=== PATIENT | male | born 1975 | race Caucasian/White ===

== ENCOUNTER 2016-06-27 11:35 | Emergency (ER) | payer BC, OTHER ==
[~2016-06-27] VITALS: Wt 91.0 kg
[2016-06-27] MEDS ORDERED: ONDANSETRON 4 MG INJ IV STA (12:50)
[2016-06-27] MEDS ORDERED: KETOROLAC 30 MG INJ IV STA (12:50)
[2016-06-27] MEDS ORDERED: SOD CHLORIDE 0.9% 1,000 ML IV STA (12:50)
[2016-06-27 13:40] LABS: ALBUMIN 4.4 g/dl (3.3-4.9)
[2016-06-27 13:41] LABS: POTASSIUM 4.3 mmol/L (3.5-5.1)
[2016-06-27 13:42] LABS: ADD UMIC NO; URINE BILIRUBIN (Dip) NEGATIVE (NEGATIVE); URINE BLOOD (Dip) NEGATIVE (NEGATIVE); URINE COLOR LT. YELLOW (YELLOW); URINE GLUCOSE (Dip) NEGATIVE (NEGATIVE); URINE KETONES (Dip) NEGATIVE (NEGATIVE); URINE LEUKOCYTE ESTERASE (Dip) NEGATIVE (NEGATIVE); URINE NITRITE (Dip) NEGATIVE (NEGATIVE); URINE TOTAL PROTEIN (Dip) NEGATIVE (NEGATIVE); URINE UROBILINOGEN (Dip) 0.2 E.U./dL (0.1-1.0)
[2016-06-27 13:43] LABS: ALBUMIN/GLOBULIN RATIO 1.37; BASOPHILS % 0.3 % (0.0-2.0); BILIRUBIN,INDIRECT 0.5 mg/dl (0-1.1); BILIRUBIN,TOTAL 0.5 mg/dl (0.2-1.3); CREATININE 0.89 mg/dl (0.61-1.24); EOSINOPHILS # 0.2 10^3/ul (0.0-0.5); EOSINOPHILS % 1.9 % (0.0-7.0); HEMATOCRIT 49.5 % (42.0-52.0); HEMOGLOBIN 16.7 g/dl (14.0-18.0); LYMPHOCYTES # 1.5 10^3/ul (0.8-2.9); LYMPHOCYTES % 13.4 % (15.0-51.0); MEAN CORPUSCULAR HEMOGLOBIN 30.3 pg (29.0-33.0); MEAN CORPUSCULAR HGB CONC 33.7 g/dl (32.0-37.0); MEAN CORPUSCULAR VOLUME 89.9 fl (82.0-101.0); MEAN PLATELET VOLUME 8.8 fl (7.4-10.4); MONOCYTES % 8.8 % (0.0-11.0); NEUTROPHIL # 8.3 10^3/ul (1.6-7.5); NEUTROPHILS % 75.6 % (39.0-77.0); PLATELET COUNT 171 10^3/UL (140-440); RED CELL DISTRIBUTION WIDTH 15.4 % (11.5-14.5); TOTAL PROTEIN 7.6 g/dl (6.1-8.1)
[2016-06-27 13:44] LABS: CALCIUM 9.5 mg/dl (8.4-10.2)
[2016-06-27 13:47] LABS: CONDITION 1; LH ANALYZER COMMENTS 1
--- NOTE | 2016-06-27 13:56 | RADRPT ---
PROCEDURE: US Abdomen. CLINICAL INDICATION: abdominal pain TECHNIQUE: Multiple real-time images were acquired of the patient's right upper quadrant abdomen a nd retroperitoneum utilizing a high resolution transducer. COMPARISON: None FINDINGS: The liver demonstrates normal echogenicity. The liver is normal in size and no focal solid lesions are seen. The liver measures 16.7 cm in length. The portal vein is patent with normal direction of f low. No intrahepatic biliary dilatation is seen. No gallstones are identified within the gallbladder. There is no pericholecystic fluid or gallbladd er wall thickening. The common bile duct measures 5 mm in maximal dimension. The visualized portions of the pancreas are unremarkable. The tail of the pancreas is not seen. No free fluid is identified. The right kidney is normal in size, and demonstrate normal echogenicity and cortical thickness. The right kidney measures 12.1 cm in long dimension. There is no evidence of hydronephrosis. There are no kidney stones. RPTAT: AA IMPRESSION: Unremarkable right upper quadrant abdominal ultrasound. .Claudy Ann MD, Date Time Electronically viewed and signed by .Claudy Ann MD, on 06/27/2016 13:56 .S/
[2016-06-27] MEDS ORDERED: ONDA4TAB14 PO (14:39)
[2016-06-27] MEDS ORDERED: IBUP-1542 PO (14:39)
[2016-06-27 15:00] VITALS: BP 119/64; PULSE 76; RESP 19; TEMP 98.2
--- NOTE | 2016-06-27 15:16 | ERD ---
ER Documentation Chief Complaint Date/Time DATE: 06/27/16 TIME: 15:13 Chief Complaint RIGHT UUPER ABD PAIN FOR 4 DAYS WITH N/V. DIARRHEA. HPI Patient is a 40-year-old male with no medical problems who presents with abdominal pain. He has vomiting, diarrhea, and abdominal pain that has been worse over the past 3 days. He also had headache and watery eyes. He said the pain is 8 out of 10. He went to the [facility] this morning and saw a PA who sent him to the emergency department for a gallbladder workup. ROS All systems reviewed and are negative except as per history of present illness. Medications Home Meds Active Scripts Ondansetron (Ondansetron Odt) 4 Mg Tab.rapdis, 4 MG PO Q6H Y for NAUSEA AND/OR VOMITING, #30 TAB Prov:PAPO FIELD MD 06/27/16 Ibuprofen* (Motrin*) 600 Mg Tab, 600 MG PO Q6H Y for PAIN AND OR ELEVATED TEMP, #30 TAB Prov:PAPO FIELD MD 06/27/16 Allergies Allergies: Coded Allergies: Sulfa (Sulfonamide Antibiotics) (Verified Allergy, Unknown, 06/27/16) amoxicillin (Verified Allergy, Unknown, 06/27/16) PMhx/Soc Medical and Surgical Hx: pt denies Medical Hx, pt denies Surgical Hx History of Surgery: No Anesthesia Reaction: No Hx Neurological Disorder: No Hx Respiratory Disorders: No Hx Cardiac Disorders: No Hx Psychiatric Problems: No Hx Miscellaneous Medical Probl: No Hx Alcohol Use: No Hx Substance Use: No Hx Tobacco Use: No Smoking Status: Never smoker FmHx Brother and mother both had gallbladder removal Physical Exam Vitals Vital Signs Date Time Temp Pulse Resp B/P Pulse Ox O2 Delivery O2 Flow Rate FiO2 06/27/16 15:00 98.2 76 19 119/64 100 Room Air 06/27/16 11:36 98.8 87 20 134/81 99 Physical Exam Const: Mild distress secondary to pain Head: Atraumatic Eyes: Normal Conjunctiva ENT: Normal External Ears, Nose and Mouth. Neck: Full range of motion..~ No meningismus. Resp: Clear to auscultation bilaterally Cardio: Regular rate and rhythm, no murmurs Abd: Soft, right upper quadrant pain without rebound or guarding Skin: No petechiae or rashes Back: No midline or flank tenderness Ext: No cyanosis, or edema Neur: Awake and alert Psych: Normal Mood and Affect Result Diagram: 06/27/16 1320 06/27/16 1320 Results 24 hrs Laboratory Tests Test 06/27/16 13:20 Alanine Aminotransferase (ALT/SGPT) 41IU/L Albumin 4.4g/dl Albumin/Globulin Ratio 1.37 Alkaline Phosphatase 134IU/L Anion Gap 18 Aspartate Amino Transf (AST/SGOT) 33IU/L Basophils # 0.010^3/ul Basophils % 0.3% Blood Morphology Comment Blood Urea Nitrogen 11mg/dl Calcium Level 9.5mg/dl Carbon Dioxide Level 28mmol/L Chloride Level 101mmol/L Creatinine 0.89mg/dl Direct Bilirubin 0.00mg/dl Eosinophils # 0.210^3/ul Eosinophils % 1.9% Globulin 3.20g/dl Glucose Level 87mg/dl Hematocrit 49.5% Hemoglobin 16.7g/dl Indirect Bilirubin 0.5mg/dl Lipase 55U/L Lymphocytes # 1.510^3/ul Lymphocytes % 13.4% Mean Corpuscular Hemoglobin 30.3pg Mean Corpuscular Hemoglobin Concent 33.7g/dl Mean Corpuscular Volume 89.9fl Mean Platelet Volume 8.8fl Monocytes # 1.010^3/ul Monocytes % 8.8% Neutrophils # 8.310^3/ul Neutrophils % 75.6% Nucleated Red Blood Cells # 0.010^3/ul Nucleated Red Blood Cells % 0.0/100WBC Platelet Count 95904^3/UL Potassium Level 4.3mmol/L Red Blood Count 5.5010^6/ul Red Cell Distribution Width 15.4% Sodium Level 143mmol/L Total Bilirubin 0.5mg/dl Total Protein 7.6g/dl Urine Bilirubin NEGATIVE Urine Clarity CLEAR Urine Color LT. YELLOW Urine Glucose NEGATIVE% Urine Hemoglobin NEGATIVE Urine Ketones NEGATIVE Urine Leukocyte Esterase NEGATIVE Urine Nitrite NEGATIVE Urine Specific [place] 1.015 Urine Total Protein NEGATIVE Urine Urobilinogen 0.2 E.U./dL Urine pH 5.0 White Blood Count 11.010^3/ul Current Medications Medications (Trade) Dose Ordered Sig/Cathleen Route PRN Reason Start Time Stop Time Status Last Admin Dose Admin Sodium Chloride (NS) 1,000 ml @ 1,000 mls/hr Q1H STAT IV 06/27/16 12:50 06/27/16 13:49 DC 06/27/16 13:56 Ondansetron HCl (Zofran Inj) 4 mg ONCE STAT IV 06/27/16 12:50 06/27/16 12:51 DC 06/27/16 13:55 Ketorolac Tromethamine (Toradol) 30 mg ONCE STAT IV 06/27/16 12:50 06/27/16 12:52 DC 06/27/16 13:55 Procedures/MDM Ultrasound unremarkable per radiology. Patient is a 40-year-old male who presents with right upper quadrant abdominal pain. Laboratory studies are basically normal including normal LFTs and lipase. Ultrasound shows no signs of cholecystitis. At this point I doubt cholecystitis, pancreatitis, appendicitis, or bowel obstruction. I believe outpatient management is appropriate. The patient will need close follow-up with his primary doctor within 24-48 hours for reevaluation. He can return sooner for any worsening symptoms. I will also give him information for Dr. Rojas from general surgery for further workup in case he does need gallbladder removal. Laboratory studies and ultrasound report was provided to the patient prior to discharge. Departure Diagnosis: Primary Impression: Abdominal pain Abdominal location: right upper quadrant Qualified Code: R10.11 - Right upper quadrant abdominal pain Additional Impression: Vomiting Vomiting type: unspecified Vomiting Intractability: non-intractable Nausea presence: with nausea Qualified Code: R11.2 - Non-intractable vomiting with nausea, unspecified vomiting type Condition: Fair Patient Instructions: Abdominal Pain, Vomiting (6Y-Adult) Referrals: ROSA ROJAS M.D. Additional Instructions: Call your primary care doctor TOMORROW for an appointment during the next 1-2 days.See the doctor sooner or return here if your condition worsens before your appointment time. PAPO FIELD MD Jun 27, 2016 15:15
== END 2016-06-27 15:03 | disposition home or self-care (01) ==
LOC: FTE 11:35
DX: R10.11 Right upper quadrant pain (principal); R11.2 Nausea with vomiting, unspecified
CPT/HCPCS: 36415; 76705; 80053; 81003; 83690; 85025; 96374; 96375; 99285; J1885; J2405; J7030

== ENCOUNTER 2016-08-02 13:54 | Emergency (ER) | payer BC ==
[2016-06-27 15:00] VITALS: PULSE 76; RESP 19; TEMP 98.2
[~2016-08-02] VITALS: Ht 177.8 cm; Wt 78.9 kg
[~2016-08-02 13:54] MED LIST: IBUP-1542 PO; ONDA4TAB14 PO
[2016-08-02 14:02] VITALS: Ht 177.8 cm; Wt 78.9 kg
--- NOTE | 2016-08-02 15:41 | RADRPT ---
PROCEDURE: Targeted sonogram of the mid neck superior to the thyroid gland. CLINICAL INDICATION: Questionable soft tissue mass over the medial anterior neck. TECHNIQUE: Multiple sonographic images of the thyroid were obtained utilizing a linear array trans ducer with grayscale and color-flow and a Doppler imaging. The images were reviewed on a high-resolu tion PACS workstation. COMPARISON: No. FINDINGS: A 0.5 x 0.3 x 0.6 cm nodule is identified slightly off midline superior to the isthmus of the thyroi d gland. No internal calcification or increased peripheral or internal blood flow is identified. T herefore this is likely benign. Short-term screw follow-up imaging is recommended as clinically ind icated. IMPRESSION: 0.5 x 0.3 x 0.6 cm nonspecific soft tissue mass near midline resting superior to the isthmus of the thyroid gland. RPTAT:AAJJ Physician Greg Date Time Electronically viewed and signed by Physician Greg on 08/02/2016 15:41 TAMRA/
--- NOTE | 2016-08-02 18:35 | ERD ---
ER Documentation Chief Complaint Date/Time DATE: 08/02/16 TIME: 18:[address] HPI This is a 40-year-old male presenting to the emergency department for neck mass. Patient states for the past 6 weeks he has noticed a small lesion felt underneath the skin to the medial anterior aspect of his neck. Patient states he has difficulty swallowing due to this mass. Patient went to his primary care provider who prescribed medications for allergies loratadine and Flonase. Patient states this improved symptoms however continued to notice a mass. Patient was told to follow-up with ENT but was unable to obtain an appointment for 3 weeks. No difficulty breathing, shortness of breath or chest pain. Patient is talking in complete sentences. No drooling. ROS All systems reviewed and are negative except as per history of present illness. Medications Home Meds Active Scripts Ondansetron (Ondansetron Odt) 4 Mg Tab.rapdis, 4 MG PO Q6H Y for NAUSEA AND/OR VOMITING, #30 TAB Prov:PAPO FIELD MD 06/27/16 Ibuprofen* (Motrin*) 600 Mg Tab, 600 MG PO Q6H Y for PAIN AND OR ELEVATED TEMP, #30 TAB Prov:PAPO FIELD MD 06/27/16 Allergies Allergies: Coded Allergies: Sulfa (Sulfonamide Antibiotics) (Verified Allergy, Unknown, 06/27/16) amoxicillin (Verified Allergy, Unknown, 06/27/16) PMhx/Soc History of Surgery: Yes (6 FACIAL SX, SINUS CAVITY SX, CHIN RECONSTRUCTION) Anesthesia Reaction: No Hx Neurological Disorder: No Hx Respiratory Disorders: No Hx Cardiac Disorders: No Hx Psychiatric Problems: No Hx Miscellaneous Medical Probl: No (ALLERGIES, ACICLOVIR DAILY) Hx Alcohol Use: No Hx Substance Use: No Hx Tobacco Use: No Smoking Status: Never smoker Physical Exam Vitals Vital Signs Date Time Temp Pulse Resp B/P Pulse Ox O2 Delivery O2 Flow Rate FiO2 08/02/16 14:02 98.1 87 18 136/87 99 Physical Exam Const: No acute distress, alert Head: Atraumatic Eyes: Normal Conjunctiva ENT: Normal External Ears, Nose and Mouth. No erythema or exudate posterior pharynx. Neck: Full range of motion..~ No meningismus. small round <1cm lesion palpated to medial anterior neck. no surrounding erythema Resp: Clear to auscultation bilaterally. No wheezing, rhonchi or crackles. Cardio: Regular rate and rhythm, no murmurs Abd: Soft, non tender, non distended. Normal bowel sounds Skin: No petechiae or rashes Back: No midline or flank tenderness Ext: No cyanosis, or edema Neur: Awake and alert Psych: Normal Mood and Affect Procedures/MDM ED COURSE: The patient was stable throughout ED course. I kept the patient and/or family informed of laboratory and diagnostic imaging results throughout the ED course. Microbiology Rapid strep test negative Imaging Ultrasound neck soft tissue Patient: MG CARNEY : 1975 Age: 40 Sex: M MR #: [id number] DOS: 08/02/16 1458 Ordering MD: JARRED HERNANDEZ NP Location: [facility]TE Room/Bed: PROCEDURE: Targeted sonogram of the mid neck superior to the thyroid gland. CLINICAL INDICATION: Questionable soft tissue mass over the medial anterior neck. TECHNIQUE: Multiple sonographic images of the thyroid were obtained utilizing a linear array transducer with grayscale and color-flow and a Doppler imaging. The images were reviewed on a high-resolution PACS workstation. COMPARISON: No. FINDINGS: A 0.5 x 0.3 x 0.6 cm nodule is identified slightly off midline superior to the isthmus of the thyroid gland. No internal calcification or increased peripheral or internal blood flow is identified. Therefore this is likely benign. Short-term screw follow-up imaging is recommended as clinically indicated. IMPRESSION: 0.5 x 0.3 x 0.6 cm nonspecific soft tissue mass near midline resting superior to the isthmus of the thyroid gland. MDM: 40-year-old male presents the emergency department for evaluation of neck mass. Patient states he noticed the mass about 6 weeks ago. Was told to follow -up with ENT but was unable to obtain an appointment for 3 weeks. Patient states he has difficulty swallowing however no drooling. Patient is able to swallow his own saliva. Rapid strep test is negative. No fevers or chills. Ultrasound neck soft tissue reviewed by radiologist as 0.5 x 0.3 x 0.6 cm nonspecific soft tissue mass near midline resting superior to the isthmus of the thyroid gland. Discussed findings with patient. Instructed patient on getting urgent follow-up with ENT or endocrinology for repeat ultrasound and biopsy. Patient given resources for follow-up including information for Dr. Palacios, Dr. Warner, and Dr. Bain. Patient also given resources for surrounding [facility]. Patient verbalized understanding. All questions answered at discharge. Remains afebrile. Vital signs are stable. Patient is talking in complete sentences. Diagnosis is neck mass. Low suspicion for strep pharyngitis, peritonsillar abscess or epiglottitis. Departure Diagnosis: Primary Impression: Neck mass Condition: Stable Patient Instructions: Neck Pain, No Trauma Referrals: MARIAH PALACIOS MD,MEGHANN TOLENTINO,NELL BAIN,LON Collazo MD [facility] YOU HAVE RECEIVED A MEDICAL SCREENING EXAM AND THE RESULTS INDICATE THAT YOU DO NOT HAVE A CONDITION THAT REQUIRES URGENT TREATMENT IN THE EMERGENCY DEPARTMENT. FURTHER EVALUATION AND TREATMENT OF YOUR CONDITION CAN WAIT UNTIL YOU ARE SEEN IN YOUR DOCTORS OFFICE WITHIN THE NEXT 1-2 DAYS. IT IS YOUR RESPONSIBILITY TO MAKE AN APPOINTMENT FOR FOLOW-UP CARE. IF YOU HAVE A PRIMARY DOCTOR --you should call your primary doctor and schedule an appointment IF YOU DO NOT HAVE A PRIMARY DOCTOR YOU CAN CALL OUR PHYSICIAN REFERRAL HOTLINE AT IF YOU CAN NOT AFFORD TO SEE A PHYSICIAN YOU CAN CHOSE FROM THE FOLLOWING [facility] [address] [facility]. [facility] [address] [facility] [address] [facility] [address] [facility] [address] [facility]. [facility]. [address] [facility]. [facility] YOU HAVE RECEIVED A MEDICAL SCREENING EXAM AND THE RESULTS INDICATE THAT YOU DO NOT HAVE A CONDITION THAT REQUIRES URGENT TREATMENT IN THE EMERGENCY DEPARTMENT. FURTHER EVALUATION AND TREATMENT OF YOUR CONDITION CAN WAIT UNTIL YOU ARE SEEN IN YOUR DOCTORS OFFICE WITHIN THE NEXT 1-2 DAYS. IT IS YOUR RESPONSIBILITY TO MAKE AN APPOINTMENT FOR FOLOW-UP CARE. IF YOU HAVE A PRIMARY DOCTOR --you should call your primary doctor and schedule and appointment IF YOU DO NOT HAVE A PRIMARY DOCTOR YOU CAN CALL OUR PHYSICIAN REFERRAL HOTLINE AT . IF YOU CAN NOT AFFORD TO SEE A PHYSICIAN YOU CAN CHOSE FROM THE FOLLOWING [facility] INSTITUTIONS: [facility] [address] [place] [address] [facility] [address] [place] [address] [facility] [address] [place] [address] [facility] URGENT CARE/SPECIALTIES Additional Instructions: Call your primary care doctor TOMORROW for an appointment during the next 2-3 days.See the doctor sooner or return here if your condition worsens before your appointment time. Return to ED for any high fever, chest pain, difficulty breathing, shortness breath, wheezing, vomiting, diarrhea, abdominal pain or any new or worsening symptoms. JARRED HERNANDEZ NP Aug 02, 2016 18:35
== END 2016-08-02 16:20 | disposition home or self-care (01) ==
LOC: FTE 13:54
DX: R22.1 Localized swelling, mass and lump, neck (principal)
CPT/HCPCS: 76536; 87880

== ENCOUNTER 2018-06-30 13:10 | Emergency (ER) | payer BC ==
[~2018-06-30] VITALS: Ht 182.9 cm; Wt 97.0 kg
[2018-06-30 13:12] VITALS: Ht 182.9 cm; Wt 97.0 kg
--- NOTE | 2018-06-30 14:32 | ERD ---
ER Documentation Chief Complaint Chief Complaint CP X 1 MONTH, DESCRIBED SQUEEZING, WORSE LAST 2 DAYS, + DIZZINESS HPI 42-year-old male with no significant past medical history presenting with intermittent chest pain for over 1 month described as squeezing, in the left side of his chest, lasting for about 5-10 minutes. He has no associated shortness of breath, radiation of pain, headache, nausea, or vomiting. He occasionally feels some dizziness with the pain but not always. The pain is usually nonexertional but may also happen with exertion. Today he was having intercourse and afterwards he started having some chest discomfort which resolved. He saw his primary care doctor last week regarding this pain. Blood tests were ordered and he does not have the results yet. He has no family history of early cardiac disease. No leg swelling or leg pain. No history of blood clots. Currently he is denying any pain. ROS All systems reviewed and are negative except as per history of present illness. Medications Home Meds Active Scripts Ondansetron (Ondansetron Odt) 4 Mg Tab.rapdis, 4 MG PO Q6H PRN for NAUSEA AND/OR VOMITING, #30 TAB Prov:PAPO FIELD MD 06/27/16 Ibuprofen* (Motrin*) 600 Mg Tab, 600 MG PO Q6H PRN for PAIN AND OR ELEVATED TEMP, #30 TAB Prov:PAPO FIELD MD 06/27/16 Allergies Allergies: Coded Allergies: Sulfa (Sulfonamide Antibiotics) (Verified Allergy, Unknown, 06/30/18) amoxicillin (Verified Allergy, Unknown, 06/30/18) PMhx/Soc History of Surgery: Yes (6 FACIAL SX, SINUS CAVITY SX, CHIN RECONSTRUCTION) Anesthesia Reaction: No Hx Neurological Disorder: No Hx Respiratory Disorders: No Hx Cardiac Disorders: No Hx Psychiatric Problems: No Hx Miscellaneous Medical Probl: No (ALLERGIES, ACICLOVIR DAILY) Hx Alcohol Use: No Hx Substance Use: No Hx Tobacco Use: No Smoking Status: Never smoker FmHx Family History: coronary disease (Father in the 60s) Physical Exam Vitals Vital Signs Date Temp Pulse Resp B/P (MAP) Pulse Ox O2 O2 Flow FiO2 Time Delivery Rate 06/30/18 98.2 77 18 136/78 98 Room Air 15:04 (97) 06/30/18 98.7 87 18 150/89 98 13:12 (109) Physical Exam Const: No acute distress Head: Atraumatic Eyes: Normal Conjunctiva ENT: Normal External Ears, Nose and Mouth. Neck: Full range of motion. No meningismus. Resp: Clear to auscultation bilaterally Cardio: Regular rate and rhythm, no murmurs. 2+ distal pulses in all 4 extremities Abd: Soft, non tender, non distended. Normal bowel sounds Skin: No petechiae or rashes Back: No midline or flank tenderness Ext: No cyanosis, or edema. No calf tenderness. Neur: Awake and alert, oriented, normal speech, no facial asymmetry, moving all extremities Psych: Normal Mood and Affect Result Diagram: 06/30/18 1347 06/30/18 1347 Results 24 hrs Laboratory Tests Test 06/30/18 13:47 White Blood Count 7.0 10^3/ul Red Blood Count 5.36 10^6/ul Hemoglobin 17.2 g/dl Hematocrit 49.2 % Mean Corpuscular Volume 91.8 fl Mean Corpuscular Hemoglobin 32.1 pg Mean Corpuscular Hemoglobin Concent 35.0 g/dl Red Cell Distribution Width 12.6 % Platelet Count 230 10^3/UL Mean Platelet Volume 9.9 fl Immature Granulocytes % 0.900 % Neutrophils % 61.2 % Lymphocytes % 24.3 % Monocytes % 9.9 % Eosinophils % 2.7 % Basophils % 1.0 % Nucleated Red Blood Cells % 0.0 /100WBC Immature Granulocytes # 0.060 10^3/ul Neutrophils # 4.3 10^3/ul Lymphocytes # 1.7 10^3/ul Monocytes # 0.7 10^3/ul Eosinophils # 0.2 10^3/ul Basophils # 0.1 10^3/ul Nucleated Red Blood Cells # 0.0 10^3/ul Sodium Level 142 mmol/L Potassium Level 4.6 mmol/L Chloride Level 103 mmol/L Carbon Dioxide Level 30 mmol/L Anion Gap 9 Blood Urea Nitrogen 15 mg/dl Creatinine 1.09 mg/dl Est Glomerular Filtrat Rate mL/min > 60 mL/min Glucose Level 94 mg/dl Calcium Level 10.5 mg/dl Total Bilirubin 1.2 mg/dl Direct Bilirubin 0.00 mg/dl Indirect Bilirubin 1.2 mg/dl Aspartate Amino Transf (AST/SGOT) 69 IU/L Alanine Aminotransferase (ALT/SGPT) 103 IU/L Alkaline Phosphatase 108 IU/L Troponin I < 0.012 ng/ml Total Protein 8.3 g/dl Albumin 4.9 g/dl Globulin 3.40 g/dl Albumin/Globulin Ratio 1.44 Lipase 65 U/L Procedures/MDM EMERGENT LABS AND DIAGNOSTIC STUDIES: Lab Results above were reviewed and interpreted by me. CBC: no anemia or evidence of infection BMP: No evidence of electrolyte abnormality, renal failure, hypoglycemia Troponin within normal limits, not indicative of cardiac ischemia 12-lead EKG was interpreted by Maureen Taylor MD: Normal Sinus Rhythm Normal axis Normal intervals No acute ST or T wave changes suggestive of acute ischemia or STEMI. Radiology Results as interpreted by Radiology below were reviewed by Rae Taylor MD: Chest x-ray shows no acute abnormalities Initial Nursing notes reviewed. Previous Medical Records requested via the Electronic Health Record. EMERGENCY DEPARTMENT COURSE / MEDICAL DECISION MAKING: The patient presents with chest pain. Vitals are stable. I considered pulmonary embolism, aortic dissection, pneumothorax among other diagnoses. Evaluation for acute coronary syndrome was performed. The HEART score was utilized for risk stratification and found to be 1. Repeat EKG and troponin were not indicated as patient has had this pain for over 1 month and today for over 6 hours. Based on this evaluation the patient's risk of major adverse cardiac events is <1%. Shared decision making occurred with patient and the decision has been made to discharge the patient for outpatient evaluation and functional study within 72 hours. Patient instructed to arrange follow up with PCP in the next 2 days and return to the ED for any new or worsening symptoms. Patient's blood pressure was elevated (>120/80) but appears stable without evidence of hypertensive emergency or urgency. The patient was counseled about the risks of hypertension and urged to pursue outpatient monitoring and therapy within a week with their primary care physician. Departure Diagnosis: Primary Impression: Chest pain Chest pain type: unspecified Qualified Codes: R07.9 - Chest pain, unspecified Condition: Stable Patient Instructions: Chest Pain, Uncertain Cause Referrals: DOCTOR,NOT ON STAFF (PCP) Additional Instructions: Follow-up with your primary care doctor within the next 3 days. You may need an outpatient stress test done. If any of your symptoms worsen, return to the ER immediately. FARIHA TAYLOR MD Jun 30, 2018 14:32
[2018-06-30 15:04] VITALS: BP 136/78; PULSE 77; RESP 18
== END 2018-06-30 15:07 | disposition home or self-care (01) ==
LOC: E/R 13:10
DX: R07.9 Chest pain, unspecified (principal)
CPT/HCPCS: 36415; 71045; 80053; 83690; 84484; 85025; 93005; 99285; Z7610